=== PATIENT | male | born 1990 | race Caucasian/White ===

== ENCOUNTER 2020-07-27 01:02 | Emergency (ER) | payer OTHER ==
[~2020-07-27 01:02] MED LIST: IBUPROFEN400 MG PO; LOPRESSOR 25 MG25 MG PO; VENTOLIN HFA 66.7 GM INH
== END 2020-07-27 06:57 | disposition home or self-care (01) ==
LOC: ER1 01:02
DX: S01.511A Laceration without foreign body of lip, initial encounter (principal); W22.8XXA Striking against or struck by other objects, initial encounter
CPT/HCPCS: 12051; 99283